=== PATIENT | female | born 1995 | race Caucasian/White ===

== ENCOUNTER 2017-04-07 06:33 | Emergency (ER) | payer OTHER ==
[2017-04-07 06:41] VITALS: BP 96/50; RESP 16
--- NOTE | 2017-04-07 06:54 | EDPHY ---
H & P Time Seen by Provider: 04/07/17 06:53 HPI/ROS: Chief complaint. Vision change HPI. 21-year-old female presents emergency department with 2 min loss of vision this morning. She tells me that 2 weeks ago she fell down stairs. She was seen in a hospital in [place] where she had CT of her head and face. Apparently the only finding was a broken nose. 3 days ago she had surgery to reset her nose. Yesterday she had a headache and had some nausea during the night. Her packing fell out. This morning she got up to go to the bathroom and had 2 min episode where she could not see light or dark from either eye. She notes that was just black with both eyes. After 2 min now her vision is back to normal. No other worsening headache. She does have some nausea. No focal weakness or paresthesias. No similar symptoms previously ROS Constitutional. no fever/chills, no weakness Eyes. 2 min episode of loss of vision ENT. Recent nose surgery for nasal fracture Cardiovascular. no chest pain Respiratory. no shortness of breath, no cough Abdominal. Nausea . no problems urinating MS. no calf pain/swelling, no neck/back pain, no joint pain Skin. no rash Lymph. no swollen glands Neuro. Slight headache Past Medical/Surgical History: Past medical history nose surgery, dental surgery, concussion Social History: Single, nonsmoker, no alcohol Smoking Status: Never smoked Physical Exam: General Appearance: Alert well-developed female no distress vital signs are stable Eyes: Pupils equal and round no pallor or injection. ENT, tympanic membranes are normal. Pharynx without injection. Nose without evidence of bleeding. No septal hematoma. There is a splint on the outside of her nose Respiratory: There are no retractions, lungs are clear to auscultation. Cardiovascular: Regular rate and rhythm. Gastrointestinal: Abdomen is soft and nontender, no masses, bowel sounds normal. Neurological: Awake and alert, sensory and motor exams grossly normal. Skin: Warm and dry, no rashes. Musculoskeletal: Neck is supple nontender. Extremities symmetrical, full range of motion. Psychiatric: Patient is oriented X 3, there is no agitation. Constitutional: Initial Vital Signs Temperature (C) 36.6 C 04/07/17 06:35 Heart Rate 63 04/07/17 06:35 Respiratory Rate 16 04/07/17 06:35 Blood Pressure 96/50 L 04/07/17 06:35 O2 Sat (%) 94 04/07/17 06:35 O2 Delivery Mode Room Air Allergies/Adverse Reactions: No Known Allergies Allergy (Unverified 04/07/17 06:42) Home Medications: Medication Instructions Recorded NK [No Known Home Meds] 04/07/17 Medical Decision Making Procedures: Zofran ODT ED Course/Re-evaluation: I consulted and discussed case with Dr. Toro on-call for ENT. He wonders if this could be caused by swelling. Dr. Melgar is unavailable to the office opens in about half an hour. In discussion with patient and her mom we agree to started IV and some blood work and order a head CT. I consulted and discussed case with Dr. Karsten Melgar, ENT. He agrees with treatment I consulted and discussed case with Dr. Lee Patel, ophthalmology who will see the patient in the office in just a few minutes after discharge from the emergency department 9:05 a.m.. The patient, her mom and dad and I discussed imaging and lab results. We discussed treatment plan including recommendation for ophthalmology exam and criteria for return and importance of follow-up. They expressed understanding and agreement. Differential Diagnosis: I considered vasovagal, intracranial hemorrhage or swelling. Normal eye exam and normal neurologic exam now - Data Points Laboratory Results: Laboratory Results 04/07/17 08:00 04/07/17 08:00 Medications Given: Discontinued Medications Sodium Chloride (Ns) 1,000 mls @ 0 mls/hr IV ONCE ONE; Wide Open PRN Reason: Protocol Stop: 04/07/17 07:31 Last Admin: 04/07/17 08:00 Dose: 1,000 mls Ondansetron HCl (Zofran Odt) 4 mg PO EDNOW ONE Stop: 04/07/17 07:07 Last Admin: 04/07/17 07:12 Dose: 4 mg Departure - Departure Disposition: Home, Routine, Self-Care Clinical Impression: Acute visual change Condition: Good Instructions: Blurred Vision (ED) Additional Instructions: From the emergency department go to Dr. Patel office for eye exam. Return to the emergency department for worsening symptoms. Follow up with Dr. Melgar as you and he have discussed Referrals: NONE *PRIMARY CARE P,. [Unknown] - As per Instructions Karsten Melgar MD [Medical Doctor] - As per Instructions Lee Patel MD [Medical Doctor] - 1 day without fail
[2017-04-07] MEDS ORDERED: ONDANSETRON DISINTEGRATING 4 MG TAB PO ONE (07:06)
[2017-04-07] MEDS ORDERED: NS 1,000 ML IV ONE (07:30)
[2017-04-07 08:06] LABS: % IMMATURE GRANULYOCYTES 0.4 % (0.0-1.1); ABSOLUTE IMMATURE GRANULOCYTES 0.04 10^3/uL (0.00-0.10); ADD DIFF? NO; ADD MORPH? NO; ADD SCAN? NO; ATYPICAL LYMPHOCYTE FLAG 10 (0-99); FRAGMENT RBC FLAG 0 (0-99); HEMATOCRIT 39.7 % (38.0-47.0); HEMOGLOBIN 14.5 g/dL (12.6-16.3); LEFT SHIFT FLG 0 (0-99); LIPEMIA HEMOLYSIS FLAG 90 (0-99); MEAN CELL HEMOGLOBIN 31.4 pg (27.9-34.1); MEAN CELL HEMOGLOBIN CONCENTR. 36.5 g/dL (32.4-36.7); MEAN CELL VOLUME 85.9 fL (81.5-99.8); MEAN PLATELET VOLUME 10.8 fL (8.7-11.7); PLATELET CLUMPS FLAG 0 (0-99); PLATELET COUNT 247 10^3/uL (150-400); RED BLOOD CELL COUNT 4.62 10^6/uL (4.18-5.33); RED CELL DISTRIBUTION WIDTH 11.9 % (11.5-15.2)
[2017-04-07 08:15] VITALS: PULSE 66; O2SAT 95
[2017-04-07 08:19] LABS: ANION GAP 13 mEq/L (8-16); CALCIUM 9.7 mg/dL (8.5-10.4); CARBON DIOXIDE 24 mEq/l (22-31); CHLORIDE 102 mEq/L (97-110); CREATININE 0.8 mg/dL (0.6-1.0); GLOMERULAR FILTRATION RATE > 60; GLUCOSE 91 mg/dL (70-100); POTASSIUM 5.1 mEq/L (3.5-5.2); SODIUM 139 mEq/L (134-144)
[2017-04-07 09:35] VITALS: TEMP 97.7
== END 2017-04-07 09:33 | disposition home or self-care (01) ==
DX: H53.8 Other visual disturbances (principal); E86.9 Volume depletion, unspecified